=== PATIENT | female | born 1960 | race Caucasian/White ===

== ENCOUNTER → 2017-06-17 | Outpatient (CLI) | payer BC, MEDICARE ==
[~2017-06-17] MED LIST: ADDERALL10 MG PO; ASACOL HD800 MG PO; BENADRYL25 MG PO; CALCIUM + D 6001 TA1 PO; CYMBALTA PO; FISH OIL 1,2001 EACH PO; FLEXERIL10 MG PO; KEPPRA750 MG PO; LASIX20 MG PO; LORTAB 10-5001 EACH PO; MIRALAX17 G1 PO; MOBIC PO; PREMARIN0.625 MG PO; PROBIOTIC1 EACH PO; XANAX0.5 MG PO; ZANAFLEX6 MG PO; ZEGERID 40 MG C1 CAP; ZEGERID 40 MG C1 CAP PO; ZESTORETIC 10-1 EACH PO
--- NOTE | ~2017-06-17 | CR63 ---
[facility] A Service of [facility] RADIOLOGY TEXT RESULTS PATIENT: ROBERT HERNANDEZ LOCATION: [facility] : 58 UNIT #: [id number] AGE: [address]: Yi Alvarenga FINANCE AND ADMINISTRATION MANAGER SEX: F ORDER DR: [id number] [facility] [address] [place], [place] [address] [id number] O MR#: [id number] Acc #: [id number] NAME: ROBERT HERNANDEZ : 1960 SEX: F STUDY DATE/TIME: 06/17/2017 15:11 UNIT: [facility] ROOM: STUDY DESCRIPTION: CR Chest 2 View Attending Physician: Yi Alvarenga A.P.R.N. Referring Physician: Yi Alvarenga A.P.R.N. Ordering Physician: Yi Alvarenga A.P.R.N. Primary Care Physician: Rayray Sanchez M.D. MEDICAL IMAGING REPORT This report is preliminary unless electronic signature is present EXAM Chest, 2 views, dated 06/17/2017 at 1511 hours. COMPARISON Single view chest dated 08/18/2010, at 0417 hours. HISTORY Cough, shortness of air and congestion for two weeks. FINDINGS Two views of the chest were obtained. PA and lateral examination of the chest upright shows a good expansion of the parenchyma with a normal distribution of the pulmonary vascularity. There is no indication of congestion, effusion, infiltrate, tumor, or nodular density. The pleural reflections and diaphragmatic contours are normal. The cardiac silhouette and mediastinal anatomy is within normal limits. IMPRESSION Normal 2-views chest. Dictated by... Nitish Gonzalez M.D. THIS IS AN ELECTRONICALLY VERIFIED REPORT Nitish Gonzalez M.D. at 06/18/2017 7:54 PM CPR/jt [facility] A Service of [facility] RADIOLOGY TEXT RESULTS PATIENT: ROBERT HERNANDEZ LOCATION: [facility] : 58 UNIT #: [id number] AGE: [address]: Yi Alvarenga SEX: F ORDER DR: TD: 06/17/2017 20:40 JOB #: [id number] MEDICAL IMAGING REPORT Page 1 of 1 COPY
== END | disposition home or self-care (01) ==
LOC: CRAD 14:32
DX: R07.9 Chest pain, unspecified (principal); R06.02 Shortness of breath
CPT/HCPCS: 71020